=== PATIENT | female | born 1990 | race Native Hawaiian/Other Pacific Islander ===

== ENCOUNTER 2018-10-06 05:45 | Day surgery (SDC) | payer BC ==
[2018-10-04 11:32] VITALS: BMI 47.6
[2018-10-06] MEDS ORDERED: ceFOXitin IV 1 gm/100 ml in NS 2 GM/200 ML BAG ONE (07:29)
[2018-10-06] MEDS ORDERED: Midazolam 2 MG/2 ML VIAL ONE (07:36)
[2018-10-06] MEDS ORDERED: Propofol 10 mg/ml Inj (20 ML) ONE (07:36)
[2018-10-06] MEDS ORDERED: HYDROmorphone 0.5 mg/0.5 ml ISec IVP PRN (08:08)
[2018-10-06 09:21] VITALS: O2SAT 100
[2018-10-06 11:46] VITALS: BP 117/75; PULSE 61; RESP 15; TEMP 97.9
--- NOTE | 2018-10-07 15:34 | OP ---
PROCEDURE DATE: 10/06/2018 PREOPERATIVE DIAGNOSIS: This is a 27-year-old 0, para 0 with endocervical polyp, endometrial polyp, menometrorrhagia . POSTOPERATIVE DIAGNOSIS: A 27-year-old 0, para 0 with endocervical polyp, endometrial polyp, menometrorrhagia . SURGEON: Andi Rubin MD JERKER: None. ANESTHESIA: General anesthesia. ANESTHESIOLOGIST: Dmitriy Xavier MD COMPLICATION: None. PROCEDURE PERFORMED: MyoSure dilatation and curettage, hysteroscopy, cervical polypectomy. ESTIMATED BLOOD LOSS: 20 mL. DEFICIT: 340 mL. DESCRIPTION OF PROCEDURE: After informed consent was obtained, the patient was brought to the operating room, placed on the table where general anesthesia was given. Once the anesthesia was given, the patient was prepped and draped in a normal sterile fashion. Examination revealed uterus to be uterus revealed it to be 6 weeks size. No pelvic or adnexal masses. polyp was coming out. endometrium. After that, the decision was to use the MyoSure. MyoSure was . Picture was taken. After that, Myosure was used to take out the polyp in the endometrium and cervical polyp was taken out with ring forceps. After that, sharp curettage of the endometrium was done and ECC was done. The hysteroscope was introduced and no polyp was found. The patient tolerated the procedure well. All lap, sponge, and instrument counts were correct x2 at the end of the case. Andi Rubin MD
== END 2018-10-06 10:17 | disposition home or self-care (01) ==
LOC: C.SDS 05:45
PROVIDERS: ATTEND Obstetrics & Gynecology
DX: N84.0 Polyp of corpus uteri (principal); N85.00 Endometrial hyperplasia, unspecified; N84.1 Polyp of cervix uteri; N92.0 Excessive and frequent menstruation with regular cycle
CPT/HCPCS: 58558; 88305; J1885; J2250; J2405; J2704; J3010